=== PATIENT | male | born 1965 | race African-American/Black ===

== ENCOUNTER 2019-11-12 09:53 | Emergency (ER) | payer MEDICAID ==
[~2019-11-12] VITALS: Ht 175.3 cm; Wt 87.0 kg
[2019-11-12 10:05] VITALS: BP 138/75
[2019-11-12] MEDS ORDERED: GABA-529 PO (10:09)
[2019-11-12] MEDS ORDERED: PHEN100C4 PO (10:09)
[2019-11-12] MEDS ORDERED: TETRACAINE 0.5% OPHTH DROPS 4ML RIGHTEYE ONE (10:30)
== END 2019-11-12 12:27 | disposition home or self-care (01) ==
LOC: ER 09:53
DX: S63.612A Unspecified sprain of right middle finger, initial encounter (principal); H43.391 Other vitreous opacities, right eye; R59.0 Localized enlarged lymph nodes; G40.909 Epilepsy, unspecified, not intractable, without status epilepticus; Z87.81 Personal history of (healed) traumatic fracture; X58.XXXA Exposure to other specified factors, initial encounter; Y93.89 Activity, other specified; Y92.89 Other specified places as the place of occurrence of the external cause; Y99.8 Other external cause status
CPT/HCPCS: 73130; 76641; 99284

== ENCOUNTER 2020-01-14 11:09 | Emergency (ER) | payer MEDICAID ==
[~2020-01-14] VITALS: Ht 175.3 cm; Wt 88.0 kg
[~2020-01-14 11:09] MED LIST: GABA-529 PO; PHEN100C4 PO
[2020-01-14 11:12] VITALS: BP 130/76
[2020-01-14] MEDS ORDERED: BACITRACIN ZINC OINT UDPKT TOP ONE (11:30)
[2020-01-14] MEDS ORDERED: IBUPROFEN 800MG TABLET PO ONE (11:30)
[2020-01-14] MEDS ORDERED: LIDOCAINE HCL 1% 20ML VIAL (Pyxis) INJ ONE (11:51)
== END 2020-01-14 12:20 | disposition home or self-care (01) ==
LOC: ER 11:13
DX: L02.414 Cutaneous abscess of left upper limb (principal); G40.909 Epilepsy, unspecified, not intractable, without status epilepticus
CPT/HCPCS: 10060; 99283; J3490

== ENCOUNTER 2020-01-16 10:41 | Emergency (ER) | payer MEDICAID ==
[~2020-01-16] VITALS: Ht 175.3 cm; Wt 88.0 kg
[2020-01-16 10:45] VITALS: BP 127/66
== END 2020-01-16 11:28 | disposition home or self-care (01) ==
LOC: ER 10:41
DX: Z48.00 Encounter for change or removal of nonsurgical wound dressing (principal); L02.414 Cutaneous abscess of left upper limb; R03.0 Elevated blood-pressure reading, without diagnosis of hypertension
CPT/HCPCS: 99283